=== PATIENT | male | born 1940 | race Caucasian/White ===

== ENCOUNTER 2016-12-15 12:34 | Observation (INO) | payer MEDICARE, BC ==
[2016-12-15 13:45] LABS: Hematocrit 40.3 % (42.0-52.0); Hemoglobin 14.2 gm/dL (13.5-18.0); Mean Cell Volume 90.4 fl (78-100); Mean Corpuscular Hemoglobin 31.8 pg (27-31); Mean Corpuscular Hgb Conc 35.2 g/dl (32-36); Mean Platelet Volume 8.8 fl (6.0-9.5); Neutrophil # 13.1 K/mm3 (1.3-6.0); Neutrophil % 88.8 % (42-75.0); Platelet Count 200 K/mm3 (150-450); Red Blood Count 4.46 M/mm3 (4.7-6.0); Red Cell Distribution Width 12.1 % (11.5-14.0); White Blood Count 14.8 K/mm3 (4.0-10.5)
[2016-12-15 13:58] LABS: Anion Gap 14.6 mmol/L (6.8-13.8); BUN/Creatinine Ratio 17.3 (9.0-21.6); Bilirubin, Total 1.4 mg/dL (0.0-1.1); Ca. Corrected For Albumin 9.3 mg/dL (8.4-10.2); Calcium * 9.6 mg/dL (7.9-10.9); Carbon Dioxide 26.4 mmol/L (24-32.6); Total Protein 8.3 gm/dL (6.2-8.2)
[2016-12-15] MEDS ORDERED: NORMAL SALINE 1,000 ML IV ONE ×2 (14:07→16:11)
--- NOTE | 2016-12-15 14:07 | ERNOTE ---
ER Male HPI Stated Complaint: KIDNEY INFECTION ER Male: dysuria Time Seen by Provider: 12/15/16 13:49 Source: patient, family Exam Limitations: no limitations Allergies/Adverse Reactions: Allergies amoxicillin Adverse Reaction (Mild, Verified 12/15/16 12:43) Diarrhea meperidine HCl [From Demerol] Adverse Reaction (Mild, Verified 12/15/16 12:43) Nausea Home Medications: HOME MEDICATIONS Finasteride [Proscar] 5 mg PO DAILY 03/09/14 [Last Taken Unknown] Gemfibrozil 600 mg PO BID 03/09/14 [Last Taken Unknown] LORazepam [Ativan] 0.25 - 0.5 mg PO BID PRN 03/09/14 [Last Taken Unknown] Amlodipine Bes/Olmesartan Med [Adriel 5-40 mg Tablet] 1 each PO DAILY 07/24/16 [ Last Taken Unknown] Aspirin [Aspirin Enteric Coated] 81 mg PO DAILY 07/24/16 [Last Taken Unknown] Omeprazole [Prilosec] 20 mg PO DAILY 07/24/16 [Last Taken Unknown] - History of Present Illness Narrative: Patient has not felt well in three days, no appetite, vomited once, dysuria and urinary frequency, temp up to 100 at home. He went to the clinic and was send to the ER for further workup, while here and having blood drawn he became lightheaded, blood pressure dropped to 80's, improves with laying patient down and starting IV fluids Date (Duration): 12/13/16 Timing: Present: getting worse Prior Abdominal Problems: Present: none Associated Symptoms: Present: fever/chills, nausea, vomiting, urinary frequency , low back pain - right sided. Absent: abdominal pain Prior Treatment: Absent: recently seen, currently on antibiotics Review of Systems - Review of Systems Constitutional: Present: chills, malaise ENT: Absent: nose pain, nose congestion, sore throat Respiratory: Absent: shortness of breath, cough Cardiology: Absent: chest pain Gastrointestinal/Abdominal: Present: See HPI. Absent: abdominal pain Genitourinary: Present: See HPI Skin: Absent: rash Neurological: Absent: headache - Patient's Past Medical History Patient History - Medical: Anxiety, GERD, Other Patient History - Cardiac/Respiratory: Hypertension, Hyperlipidemia Patient History - Cancer: No Hx of Cancer Patient History - Surgical Procedures: Back Surgery, Cataracts, Colonoscopy, EGD , Other Patient History - Other: None - Family History Mother Family History - Medical: , No pertinent hx Family History - Cardiac/Respiratory: Myocardial Infarction Father Family History - Medical: , No pertinent hx Family History - Cardiac/Respiratory: CHF - Social History Living Situations: home Abuse History: No History of abuse Psych History: Hx of Anxiety, Current tx/ever been on anti-depressants or anti- anxiety meds Alcohol Use: none Drug Use: none Physical Exam - Physical Exam General Appearance: Present: wd/wn, alert, no apparent distress, anxious Ears, Nose, Throat: Present: normal pharynx Respiratory: Present: no respiratory distress, normal breath sounds, no accessory muscle use, lungs clear Cardiovascular/Chest: Present: regular rate, rhythm, no murmur Gastrointestinal/Abdominal: Present: nondistended, soft, tenderness - left and right lower quadrant Neurological Exam: Present: alert, oriented, normal mood/affect Skin Exam: Present: normal color, warm/dry ED Progress - Results and Orders Patient's Lab Results:: I have reviewed the patient's lab results. - Vital Signs Patient's Vital Signs:: I have reviewed the patient's vital signs. Vital Signs: Vital Signs 12/15/16 12:35 Temperature 38.5 C H Pulse Rate 97 Respiratory 12 Rate Blood Pressure 121/62 O2 Sat by Pulse 96 Oximetry - Progress/Reassessment Chief Complaint: Genitourinary Problem Progress Note-Subjective: 12/15/16 15:50 discussed results with patient and family, suggested admission, patient agreed, feeling tired but no pain currently 12/15/16 15:51 discussed with lily Barros to admit for observation sepsis as WBC elevated and temp elevated, no criteria for severe sepsis Departure Clinical Impression: UTI (urinary tract infection) Qualifiers: Urinary tract infection type: acute cystitis Hematuria presence: without hematuria Qualified Code(s): N30.00 - Acute cystitis without hematuria Sepsis Qualifiers: Sepsis type: sepsis due to unspecified organism Qualified Code(s): A41.9 - Sepsis, unspecified organism - Departure Disposition: [facility] Condition: Good
[2016-12-15 15:43] LABS: Urine Appearance Cloudy; Urine Bilirubin Negative (NEGATIVE); Urine Blood 250 /ul (NEGATIVE); Urine Color Yellow; Urine Ketone Negative (NEGATIVE); Urine Nitrite Positive (NEGATIVE); Urine Protein 100 mg/dL (NEGATIVE); Urine Urobilinogen Normal (NORMAL); Urine pH 6.5 pH (5.0-7.0)
[2016-12-15 15:44] LABS: Urine Bacteria 4+
[2016-12-15] MEDS ORDERED: ONDANSETRON HCL/PF 2 MG/ML VIAL IV PRN (16:09)
--- NOTE | 2016-12-15 22:14 | HP ---
Chief Complaint - Chief Complaint Date of Service: 12/15/16 Time of Service: 20:00 Chief Complaint: Dysuria, right flank pain History of Present Illness: Bert is a 76 yo male that presented to the [facility] ER with urinary frequency, burning with urination, right flank pain, and fever. Symptoms started two days ago and have worsened. He reports history of UTI, BPH, and kidney stones. He reports his right flank pain is more achey and not stabbing like prior kidney stones. He reports occasionally getting blood in the urine but has not noticed anything recently. - Patient's Past Medical History Patient History - Medical: Anxiety, GERD, Other - UTI, BPH, Kidney Stones Patient History - Cardiac/Respiratory: Hypertension, Hyperlipidemia Patient History - Cancer: No Hx of Cancer Patient History - Surgical Procedures: Back Surgery, Cataracts, Colonoscopy, EGD Patient History - Other: None - Family History Mother Family History - Medical: , No pertinent hx Family History - Cardiac/Respiratory: Myocardial Infarction Father Family History - Medical: , No pertinent hx Family History - Cardiac/Respiratory: CHF - Social History Living Situations: home Abuse History: No History of abuse Psych History: Hx of Anxiety, Current tx/ever been on anti-depressants or anti- anxiety meds Smoking Status: Never smoker Have you smoked in the past 12 months: No Do you dip or chew tobacco: No Alcohol Use: none Drug Use: none Review Of Systems (GEN) - Review of Systems Generalized/Overall Review: Present: Chills, Fever EENTM: Present: No Symptoms Reported Respiratory: Present: No Symptoms Reported Cardiac: Present: No Symptoms Reported Abdominal: Present: Abdominal Pain - Right flank pain Genitourinary: Present: Burning, Urgency, Frequency. Absent: Incontinent, Hematuria Musculoskeletal: Present: No Symptoms Reported Neurological: Present: No Symptoms Reported Skin: Present: No Symptoms Reported Endocrine: Present: No Symptoms Reported Allergies/Adverse Reactions: Allergies Allergy/AdvReac Type Severity Reaction Status Date / Time amoxicillin AdvReac Mild Diarrhea Verified 12/15/16 12:43 meperidine HCl [From Demerol] AdvReac Mild Nausea Verified 12/15/16 12:43 Home Medications: HOME MEDICATIONS Finasteride [Proscar] 5 mg PO DAILY 03/09/14 [Last Taken Unknown] Gemfibrozil 600 mg PO BID 03/09/14 [Last Taken Unknown] LORazepam [Ativan] 0.25 - 0.5 mg PO BID PRN 03/09/14 [Last Taken Unknown] Amlodipine Bes/Olmesartan Med [Adriel 5-40 mg Tablet] 1 each PO DAILY 07/24/16 [ Last Taken Unknown] Aspirin [Aspirin Enteric Coated] 81 mg PO DAILY 07/24/16 [Last Taken Unknown] Omeprazole [Prilosec] 20 mg PO DAILY 07/24/16 [Last Taken Unknown] Exam - Exam Vital Signs: Vital Signs - Last Taken Temp 37.3 C 12/15/16 20:08 Pulse 83 12/15/16 20:08 Resp 18 12/15/16 20:08 BP 145/71 12/15/16 20:08 Pulse Ox 95 12/15/16 20:08 Constitutional: Present: Alert, Oriented x3, Cooperative ENT Exam: Present: hearing grossly normal Eye Exam: bilateral eye: normal inspection Neck: Present: normal inspection Respiratory: Present: chest non-tender, lungs clear, normal breath sounds Cardiovascular/Chest: Present: regular rate, rhythm, no murmur Abdomen: Present: Normal bowel sounds, soft, nontender, nondistended, no rebound tenderness, no hepatospenomegaly Extremity: Present: normal inspection Skin Exam: Present: normal color, warm/dry, no cyanosis Lymphatic: Present: no adenopathy Neurologic: Present: alert, normal mood/affect, oriented x 3 Appearance: Present: appropriate appearance, appropriate insight Diagnostic Studies: Abnormal Lab Results 12/15/16 Range/Units Unknown Urine Protein 100 H (NEGATIVE) mg/dL Urine Blood 250 H (NEGATIVE) /ul Urine Nitrate Positive H (NEGATIVE) Prot Sulfosalicylic Acd 4+ H (0) mg/dL Ur Leukocyte Esterase 500 H (NEGATIVE) /ul Urine RBC 5-10 H (0-5) /hpf Urine WBC 10-25 H (0-5) /hpf Urine Bacteria 4+ H (NONE) Urine Comment Culture ordered L Laboratory Results WBC 14.8 K/mm3 (4.0-10.5) H 12/15/16 13:38 RBC 4.46 M/mm3 (4.7-6.0) L 12/15/16 13:38 Hgb 14.2 gm/dL (13.5-18.0) 12/15/16 13:38 Hct 40.3 % (42.0-52.0) L 12/15/16 13:38 MCV 90.4 fl (78-100) 12/15/16 13:38 MCH 31.8 pg (27-31) H 12/15/16 13:38 MCHC 35.2 g/dl (32-36) 12/15/16 13:38 RDW 12.1 % (11.5-14.0) 12/15/16 13:38 Plt Count 200 K/mm3 (150-450) 12/15/16 13:38 MPV 8.8 fl (6.0-9.5) 12/15/16 13:38 Immature Gran % (Auto) 0.60 % (0.001-0.429) H 12/15/16 13:38 Immature Gran # (Auto) 0.09 K/mm3 (0.000-0.0310) H 12/15/16 13:38 Neutrophils % 88.8 % (42-75.0) H 12/15/16 13:38 Lymphocytes % 4.1 % (20-51) L 12/15/16 13:38 Monocytes % 6.3 % (0.0-9) 12/15/16 13:38 Eosinophils % 0.0 % (0.0-3.0) 12/15/16 13:38 Basophils % 0.2 % (0.0-1.0) 12/15/16 13:38 Nucleated RBC % 0.0 k/mm3 (0-1) 12/15/16 13:38 Neutrophils # 13.1 K/mm3 (1.3-6.0) H 12/15/16 13:38 Lymphocytes # 0.6 k/mm3 (1.5-3.5) L 12/15/16 13:38 Monocytes # 0.9 k/mm3 (0.0-1.0) 12/15/16 13:38 Eosinophils # 0.0 k/mm3 (0.0-0.7) 12/15/16 13:38 Absolute Basophils 0.0 k/mm3 (0.0-0.1) 12/15/16 13:38 Sodium 135 mmol/L (132-142) 12/15/16 13:38 Plasma Sodium 135 mmol/L (130-142) 12/15/16 13:38 Potassium 4.0 mmol/L (3.4-4.6) 12/15/16 13:38 Chloride 98 mmol/L (97-106) 12/15/16 13:38 Carbon Dioxide 26.4 mmol/L (24-32.6) 12/15/16 13:38 Anion Gap 14.6 mmol/L (6.8-13.8) H 12/15/16 13:38 BUN 24 mg/dL (6-23) H 12/15/16 13:38 Creatinine 1.39 mg/dL (0.4-1.4) 12/15/16 13:38 Est GFR (Non-Af Amer) 53 mL/min (60-130) L D 12/15/16 13:38 BUN/Creatinine Ratio 17.3 (9.0-21.6) 12/15/16 13:38 Random Glucose 129 mg/dL (70-110) H 12/15/16 13:38 Lactic Acid, Venous 1.8 mmol/L (0.4-2.0) 12/15/16 13:38 Calcium 9.6 mg/dL (7.9-10.9) 12/15/16 13:38 Calcium Adj for Albumin 9.3 mg/dL (8.4-10.2) 12/15/16 13:38 Total Bilirubin 1.4 mg/dL (0.0-1.1) H 12/15/16 13:38 AST 18 U/L (0-48) 12/15/16 13:38 ALT 38 U/L (19-67) 12/15/16 13:38 Alkaline Phosphatase 51 U/L (50-170) 12/15/16 13:38 Total Protein 8.3 gm/dL (6.2-8.2) H 12/15/16 13:38 Albumin 4.0 gm/dl (3.4-5.0) 12/15/16 13:38 Urine Color Yellow 12/15/16 Unknown Urine Appearance Cloudy 12/15/16 Unknown Urine pH 6.5 pH (5.0-7.0) 12/15/16 Unknown Ur Specific Granite 1.020 SP.GR. (1.005-1.030) 12/15/16 Unknown Urine Protein 100 mg/dL (NEGATIVE) H 12/15/16 Unknown Urine Glucose (UA) Negative mg/dL (NEGATIVE) 12/15/16 Unknown Urine Ketones Negative mg/dL (NEGATIVE) 12/15/16 Unknown Urine Blood 250 /ul (NEGATIVE) H 12/15/16 Unknown Urine Nitrate Positive (NEGATIVE) H 12/15/16 Unknown Urine Bilirubin Negative mg/dl (NEGATIVE) 12/15/16 Unknown Prot Sulfosalicylic Acd 4+ mg/dL (0) H 12/15/16 Unknown Urine Urobilinogen Normal EU/dl (NORMAL) 12/15/16 Unknown Ur Leukocyte Esterase 500 /ul (NEGATIVE) H 12/15/16 Unknown Urine RBC 5-10 /hpf (0-5) H 12/15/16 Unknown Urine WBC 10-25 /hpf (0-5) H 12/15/16 Unknown Ur Epithelial Cells Trace /hpf (0-5) 12/15/16 Unknown Urine Bacteria 4+ (NONE) H 12/15/16 Unknown Urine Comment Culture ordered L 12/15/16 Unknown Assessment/Plan - Assessment/Plan (1) Pyelonephritis, acute Assessment: Acute pyelonephritis based on right flank pain, dysuria, leukocytosis, and fever. UA indicates UTI. 2/4 SIRS with leukocytosis and fever and urinary tract infection indicates possible sepsis. Blood cultures pending. Given rocephin. Will admit to observation and monitor clinical condition. No lactic acid elevation or other end organ involvement. No evidence of septic shock. Although sepsis is possible patient is currently looking well. If clinically doing well tomorrow will plan to discharge to home on oral Cipro 500mg BID x 10 days due to pyelonephritis (complicated UTI in a male). Will admit to observation. Problem: Acute (2) Sepsis Problem: Acute Qualifiers: Sepsis type: sepsis due to unspecified organism Qualified Code(s): A41.9 - Sepsis, unspecified organism
[2016-12-15] MEDS ORDERED: LORazepam 0.5 MG TABLET PO PRN (22:33)
[2016-12-16 05:49] LABS: Hematocrit 36.5 % (42.0-52.0); Hemoglobin 12.7 gm/dL (13.5-18.0); Mean Cell Volume 90.6 fl (78-100); Mean Corpuscular Hemoglobin 31.5 pg (27-31); Mean Corpuscular Hgb Conc 34.8 g/dl (32-36); Mean Platelet Volume 9.1 fl (6.0-9.5); Neutrophil # 7.9 K/mm3 (1.3-6.0); Neutrophil % 82.7 % (42-75.0); Platelet Count 173 K/mm3 (150-450); Red Blood Count 4.03 M/mm3 (4.7-6.0); White Blood Count 9.6 K/mm3 (4.0-10.5)
[2016-12-16 06:03] LABS: Albumin * 3.4 gm/dl (3.4-5.0); Anion Gap 15.2 mmol/L (6.8-13.8); BUN/Creatinine Ratio 18.9 (9.0-21.6); Bilirubin, Total 0.8 mg/dL (0.0-1.1); Ca. Corrected For Albumin 9.1 mg/dL (8.4-10.2); Calcium * 8.9 mg/dL (7.9-10.9); Carbon Dioxide 21.6 mmol/L (24-32.6); Potassium 3.8 mmol/L (3.4-4.6); Total Protein 7.4 gm/dL (6.2-8.2)
--- NOTE | 2016-12-16 06:33 | DS ---
(1) Pyelonephritis, acute Problem: Acute (2) UTI (urinary tract infection) Problem: Acute Qualifiers: Urinary tract infection type: acute cystitis Hematuria presence: without hematuria Qualified Code(s): N30.00 - Acute cystitis without hematuria Description of Stay: Bert is a 76 yo male that presented to the [facility] ER with urinary frequency, burning with urination, right flank pain, and fever. Symptoms started two days ago and have worsened. He reports history of UTI, BPH, and kidney stones. He reports his right flank pain is more achey and not stabbing like prior kidney stones. He reports occasionally getting blood in the urine but has not noticed anything recently. He was admitted to observation overnight , treated with 1gm IV Rocephin in the ER. He will be discharged home with a 10 day course of PO Cipro with f/u to see his PCP in 1 week. Procedures Performed: none Discharge Disposition: Home self care Disposition: Home self-care Condition: Good Discharge Activity: Activity as tolerated Discharge Diet: General/regular food Referrals: Hari Mclean DO [Staff Physician] - 12/26/16 (following 10 days of antibiotics) Problem Oriented Discharge Instructions to Patient/Family: Urinary Tract Infection, Adult, [id number] Print Language (Maori or Italian Available): Maori Additional Patient Instructions (free text): Please see Dr. Mclean following 10 day antibiotic course. Call internal medicine to see if pt can establish with Dr. May following appointment with Dr. Mclean. Prescriptions (Any new or edited meds): Ciprofloxacin HCl [Cipro] 500 mg PO BID #20 tab Complete Home Medications List: Complete Home Medication List: Finasteride [Proscar] 5 mg PO DAILY 03/09/14 Gemfibrozil 600 mg PO BID 03/09/14 LORazepam [Ativan] 0.25 - 0.5 mg PO BID PRN 03/09/14 Amlodipine Bes/Olmesartan Med [Adriel 5-40 mg Tablet] 1 each PO DAILY 07/24/16 Aspirin [Aspirin Enteric Coated] 81 mg PO DAILY 07/24/16 Omeprazole [Prilosec] 20 mg PO DAILY 07/24/16 Ciprofloxacin HCl [Cipro] 500 mg PO BID #20 tab 12/16/16
[2016-12-16 06:57] VITALS: BP 119/62
[2016-12-16] MEDS ORDERED: PANTOPRAZOLE SODIUM 20 MG TABLET.DR PO SCH (07:00)
[2016-12-16] MEDS ORDERED: FINASTERIDE 5 MG TABLET PO SCH (09:00)
[2016-12-16] MEDS ORDERED: GEMFIBROZIL 600 MG TABLET PO SCH (09:00)
[2016-12-16] MEDS ORDERED: LOSARTAN POTASSIUM 50 MG TABLET PO SCH (09:00)
[2016-12-16] MEDS ORDERED: ASPIRIN 81 MG TABLET.DR PO SCH (09:00)
[2016-12-16] MEDS ORDERED: amLODIPine BESYLATE 5 MG TABLET PO SCH (09:00)
== END 2016-12-16 10:24 | disposition home or self-care (01) ==
LOC: ER 12:34 → MS 15:58
PROVIDERS: ADMIT Family Medicine; ATTEND Family Medicine
DX: N10 Acute pyelonephritis (principal); N39.0 Urinary tract infection, site not specified
CPT/HCPCS: 36415; 80053; 81001; 83605; 85025; 87040; 96365; 99283; G0378

== ENCOUNTER 2016-12-16 20:49 | Emergency (ER) | payer MEDICARE, BC ==
[2016-12-16 20:58] VITALS: BP 134/69
[2016-12-16 21:15] LABS: Hematocrit 34.8 % (42.0-52.0); Hemoglobin 12.2 gm/dL (13.5-18.0); Mean Cell Volume 89.9 fl (78-100); Mean Corpuscular Hemoglobin 31.5 pg (27-31); Mean Corpuscular Hgb Conc 35.1 g/dl (32-36); Mean Platelet Volume 9.1 fl (6.0-9.5); Neutrophil # 5.2 K/mm3 (1.3-6.0); Neutrophil % 82.4 % (42-75.0); Platelet Count 191 K/mm3 (150-450); Red Blood Count 3.87 M/mm3 (4.7-6.0); White Blood Count 6.3 K/mm3 (4.0-10.5)
--- NOTE | 2016-12-16 21:22 | ERNOTE ---
Medical Problem HPI - General Chief Complaint: General Assessment Time Seen by Provider: 12/16/16 21:09 Source: patient, family Exam Limitations: no limitations - Immun/Allergies/Home Medications Immunizations: IMMUNIZATION HX Immunizations Up to Date Yes Allergies/Adverse Reactions: Allergies amoxicillin Adverse Reaction (Mild, Verified 12/16/16 20:58) Diarrhea meperidine HCl [From Demerol] Adverse Reaction (Mild, Verified 12/16/16 20:58) Nausea Home Medications: HOME MEDICATIONS Finasteride [Proscar] 5 mg PO DAILY 03/09/14 [Last Taken Unknown] Gemfibrozil 600 mg PO BID 03/09/14 [Last Taken Unknown] LORazepam [Ativan] 0.25 - 0.5 mg PO BID PRN 03/09/14 [Last Taken Unknown] Amlodipine Bes/Olmesartan Med [Adriel 5-40 mg Tablet] 1 each PO DAILY 07/24/16 [ Last Taken Unknown] Aspirin [Aspirin Enteric Coated] 81 mg PO DAILY 07/24/16 [Last Taken Unknown] Omeprazole [Prilosec] 20 mg PO DAILY 07/24/16 [Last Taken Unknown] Ciprofloxacin HCl [Cipro] 500 mg PO BID #20 tab 12/16/16 [Last Taken Unknown] - History of Present History Narrative: Pt was releasedf from med/ surg at this hospital this morning with dx of UTI. Pt continued to run a fever and this evening it was up to 101.9 and he was concerned that he was worsening again Timing: getting worse Severity: moderate Review of Systems - Review of Systems Constitutional: Present: fever, chills, fatigue EYE: Present: no symptoms reported ENT: Present: no symptoms reported Respiratory: Absent: shortness of breath, cough Cardiology: Absent: chest pain Gastrointestinal/Abdominal: Absent: nausea, vomiting Genitourinary: Present: See HPI, other - tenderness of testicle today. Absent: discharge Musculoskeletal: Present: no symptoms reported Skin: Present: no symptoms reported Neurological: Present: no symptoms reported Endocrine: Present: no symptoms reported Hematologic/Lymphatic: Present: no symptoms reported Psych: Present: no symptoms reported - Patient's Past Medical History Patient History - Medical: Anxiety, GERD, Other Patient History - Cardiac/Respiratory: Hypertension, Hyperlipidemia Patient History - Cancer: No Hx of Cancer Patient History - Surgical Procedures: Back Surgery, Cataracts, Colonoscopy, EGD , Other Patient History - Other: None - Family History Mother Family History - Medical: , No pertinent hx Family History - Cardiac/Respiratory: Myocardial Infarction Father Family History - Medical: , No pertinent hx Family History - Cardiac/Respiratory: CHF - Social History Living Situations: alone Abuse History: No History of abuse Psych History: Hx of Anxiety, Current tx/ever been on anti-depressants or anti- anxiety meds Alcohol Use: none Drug Use: none - Immunizations Immunizations Up to Date: Yes Physical Exam - Physical Exam General Appearance: Present: wd/wn, alert, no apparent distress Eye Exam: Normal inspection: bilateral Ears, Nose, Throat: Present: normal ENT inspection, hearing grossly normal Neck: Present: normal inspection, supple Respiratory: Present: no respiratory distress, no accessory muscle use Gastrointestinal/Abdominal: Present: nontender, nondistended, soft Back Exam: Present: normal inspection, no CVA tenderness Extremity Exam: Present: normal inspection, non-tender, no edema, normal range of motion Neurological Exam: Present: alert, oriented, normal mood/affect, no motor/ sensory deficits Skin Exam: Present: normal color, warm/dry ED Progress - Results and Orders Patient's Lab Results:: I have reviewed the patient's lab results. Results and Orders: Laboratory Tests 12/16/16 12/16/16 21:03 21:15 WBC 6.3 D Hgb 12.2 L Hct 34.8 L Plt Count 191 Sodium 137 Potassium 3.8 Chloride 103 Carbon Dioxide 21.2 L BUN 24 H Creatinine 1.43 H Est GFR (Non-Af Amer) 51 L D Random Glucose 144 H Calcium 8.8 Total Bilirubin 0.7 AST 28 ALT 39 Alkaline Phosphatase 47 L Total Protein 7.4 Albumin 3.5 - Vital Signs Vital Signs: Vital Signs 12/16/16 20:55 Temperature 38.4 C H Pulse Rate 91 Respiratory 18 Rate Blood Pressure 134/69 O2 Sat by Pulse 94 Oximetry - Progress/Reassessment Chief Complaint: General Assessment Departure - Departure Clinical Impression: UTI (urinary tract infection) Qualifiers: Urinary tract infection type: acute pyelonephritis Qualified Code(s): N10 - Acute pyelonephritis Disposition: Home Follow Up Needed Condition: Good Instructions: Pyelonephritis, Adult, [id number] Additional Instructions: Follow up as instructed at your discharge. Take antibiotics as directed. May use tylenol or aleve for fever. Follow up if worsening Referrals: Hari Mclean DO [Primary Care Provider] -
[2016-12-16 21:29] LABS: Albumin * 3.5 gm/dl (3.4-5.0); Anion Gap 16.6 mmol/L (6.8-13.8); BUN/Creatinine Ratio 16.8 (9.0-21.6); Bilirubin, Total 0.7 mg/dL (0.0-1.1); Ca. Corrected For Albumin 8.9 mg/dL (8.4-10.2); Calcium * 8.8 mg/dL (7.9-10.9); Carbon Dioxide 21.2 mmol/L (24-32.6); Potassium 3.8 mmol/L (3.4-4.6); Total Protein 7.4 gm/dL (6.2-8.2)
== END 2016-12-16 22:12 | disposition home or self-care (01) ==
LOC: ER 20:49
DX: N10 Acute pyelonephritis (principal); F41.9 Anxiety disorder, unspecified; K21.9 Gastro-esophageal reflux disease without esophagitis; I10 Essential (primary) hypertension; E78.5 Hyperlipidemia, unspecified